=== PATIENT | female | born 1970 | race Caucasian/White ===

== ENCOUNTER 2016-11-24 11:58 | Emergency (ER) | payer BC ==
[~2016-11-24] VITALS: Ht 162.6 cm; Wt 110.0 kg
[2016-11-24 12:00] VITALS: BP 143/76; PULSE 76; RESP 16; TEMP 98.2; O2SAT 97
[2016-11-24] MEDS ORDERED: IBUP800T23 PO (13:20)
--- NOTE | 2016-11-24 13:21 | PD ---
HPI Chief Complaint: Fall Time Seen by Provider: 13:12 Travel History International Travel<30 days: No Contact w/Intl Traveler<30days: No Traveled to known affect area: No History of Present Illness HPI 46-year-old female presents to the emergency Department with complaint of left distal medial forearm pain after tripping in the dark early Monday morning and hitting the side of her arm on the wall. She did not fall completely. She denies hitting her head or loss of consciousness. Denies paresthesias, loss of sensation, decreased range motion, decreased strength to the affected extremity. Pain is aggravated with movement of the left middle finger. She has full range of motion at the wrist without pain. She has been wearing a wrist splint for support. She's been taking Aleve, ibuprofen, and Tylenol with minimal relief of pain. No known allergies. Denies significant past medical history. No other modifying factors or associated signs and symptoms. PFSH Past Medical History Medical History: Denies Significant Hx Social History Tobacco Use: No Allergies-Medications (Allergen,Severity, Reaction): Coded Allergies: No Known Allergies (Unverified , 11/24/16) Reported Meds & Prescriptions Reported Meds & Active Scripts Active Ibuprofen 800 Mg Tab 800 Mg PO Q6HR PRN Review of Systems Except as stated in HPI: all other systems reviewed are Neg Physical Exam Narrative GENERAL: Well-nourished, well-developed patient, in no acute distress SKIN: Warm and dry. HEAD: Atraumatic. Normocephalic. EYES: Pupils equal and round. No scleral icterus. No injection or drainage. ENT: Mucosa pink and moist. Airway patent. NECK: Trachea midline. CARDIOVASCULAR: Regular rate. RESPIRATORY: No accessory muscle use. GASTROINTESTINAL: Abdomen soft, non-tender, nondistended. MUSCULOSKELETAL: Left wrist is with full range of motion and without tenderness on palpation; without erythema or edema. Left medial distal forearm with tenderness on palpation and without erythema, edema, ecchymosis. No obvious deformities. Left upper extremity supple and non-tense with 2+ radial pulse and sensory intact and without erythema or edema. No obvious deformities. No clubbing. No cyanosis. NEUROLOGICAL: Awake and alert. Oriented 3. No obvious cranial nerve deficits. Motor grossly within normal limits. Normal speech. PSYCHIATRIC: Appropriate mood and affect; insight and judgment normal. Data Data Last Documented VS Vital Signs Date Time Temp Pulse Resp B/P Pulse Ox O2 Delivery O2 Flow Rate FiO2 11/24/16 12:00 98.2 76 16 143/76 97 Room Air Orders Forearm (2vws) (11/24/16 13:11) MDM Medical Decision Making Medical Screen Exam Complete: Yes Emergency Medical Condition: Yes Medical Record Reviewed: Yes Differential Diagnosis Forearm fracture, forearm contusion, fall Narrative Course 46-year-old female with left forearm injury after a mechanical fall. She did not fall completely denies hitting her head or loss of consciousness. Left approximate supplemented with 2+ radial pulses and sensory intact without erythema or edema. I offered the patient a nonnarcotic for pain and she declined at this time cycle and she said she took something just prior to arrival. Left forearm x-ray ordered. 1416: Left forearm x-ray with no acute findings. Patient has wrist splint for support. Ibuprofen prescribed for home. Patient is medically cleared and stable for discharge. Discussed reasons to return to the emergency department. Instructed patient to follow up with primary care provider. Patient agrees with treatment plan. The patients vital signs are stable and the patient is stable for outpatient follow-up and treatment. Patient discharged home, stable and in no acute distress. Diagnosis Primary Impression: Contusion of forearm, left Referrals: Primary Care Physician Patient Instructions: Contusion in Adults (ED), General Instructions Additional Instructions: Tylenol or ibuprofen as directed and as needed to reduce pain Rest, ice, compress, and elevate extremity to decrease pain and inflammation Wrist Splint for support as needed Avoid aggravating activity; increase activity as tolerated Follow-up with primary care provider Return to the emergency department immediately with worsening symptoms Med/Other Pt SpecificInfo: Prescription(s) given Scripts Ibuprofen 800 Mg [id number] Mg PO Q6HR PRN (PAIN) #30 TAB Ref 0 Prov:Mary Jo Zamorano 11/24/16 Disposition: 01 DISCHARGE HOME Condition: Stable Mary Jo Zamorano Nov 24, 2016 13:21
--- NOTE | 2016-11-24 14:11 | RADRPT ---
EXAM DATE/TIME: 11/24/2016 13:41 [facility] COMPARISON: No previous studies available for comparison. INDICATIONS : Left wrist pain after falling 4 days ago. MEDICAL HISTORY : None. SURGICAL HISTORY : None. ENCOUNTER: Initial ACUITY: 4 - 6 days PAIN SCORE: 4/10 LOCATION: Left wrist. FINDINGS: Two view examination of the left forearm demonstrates no evidence of fracture or dislocation. Bony m ineralization is normal. The soft tissue structures are intact. CONCLUSION: No acute osseous injury. Arun Maria MD on November 24, 2016 at 14:09 Board Certified Radiologist. This report was verified electronically.
== END 2016-11-24 14:29 | disposition home or self-care (01) ==
LOC: NEPB 11:58
DX: S50.12XA Contusion of left forearm, initial encounter (principal); W18.40XA Slipping, tripping and stumbling without falling, unspecified, initial encounter; Y92.009 Unspecified place in unspecified non-institutional (private) residence as the place of occurrence of the external cause
CPT/HCPCS: 73090; 99283

== ENCOUNTER 2016-12-28 10:27 | Emergency (ER) | payer BC ==
[~2016-12-28] VITALS: Ht 162.6 cm; Wt 91.0 kg
[~2016-12-28 10:27] MED LIST: IBUP800T23 PO
[2016-12-28 10:30] VITALS: BP 146/75; PULSE 98; RESP 16; TEMP 98; O2SAT 100
[2016-12-28 10:38] VITALS: BP 136/72; PULSE 93; RESP 20; TEMP 97.2; O2SAT 100
--- NOTE | 2016-12-28 10:46 | PD ---
HPI Chief Complaint: Pain: Acute or Chronic Time Seen by Provider: 10:45 Travel History International Travel<30 days: No Contact w/Intl Traveler<30days: No Traveled to known affect area: No History of Present Illness HPI 46-year-old female came to the emergency room with history of right lower quadrant abdominal pain for almost a week. Patient says it started 1 week ago when it was really sharp and then subsided. She has had a dull ache through the rest of the week. This morning the pain got really worse and was unbearable and she decided come to the emergency room. Her appetite has been low during these past few weeks. She has been nauseous but no vomiting. No history of dysuria or hematuria. No history of fever or chills. Vital signs were relatively stable. She has history of polycystic ovary disease. Patient says currently she is uncomfortable with the pain. [facility] Past Medical History Narrative Medical List of her past medical, surgical, social and family history was reviewed from the nursing note. Social History Tobacco Use: No Allergies-Medications (Allergen,Severity, Reaction): Coded Allergies: No Known Allergies (Unverified , 12/28/16) Comments No known drug allergies. Reported Meds & Prescriptions Reported Meds & Active Scripts Active Naprosyn (Naproxen) 500 Mg Tab 500 Mg PO BID Lequire (Hydrocodone-Acetaminophen) 5-325 mg Tab 1 Tab PO Q6H PRN Ibuprofen 800 Mg Tab 800 Mg PO Q6HR PRN Narrative Medication List of her home medications reviewed from the nursing note. Review of Systems Except as stated in HPI: all other systems reviewed are Neg Physical Exam Narrative GENERAL: Awake, alert, obese, mild distress SKIN: Warm and dry. HEAD: Atraumatic. Normocephalic. EYES: Pupils equal and round. No scleral icterus. No injection or drainage. ENT: No nasal bleeding or discharge. Mucous membranes pink and moist. NECK: Trachea midline. No JVD. CARDIOVASCULAR: Regular rate and rhythm. No murmur appreciated. RESPIRATORY: No accessory muscle use. Clear to auscultation. Breath sounds equal bilaterally. GASTROINTESTINAL: Abdomen soft, right lower quadrant tenderness, nondistended. Hepatic and splenic margins not palpable. MUSCULOSKELETAL: No obvious deformities. No clubbing. No cyanosis. No edema. NEUROLOGICAL: Awake and alert. No obvious cranial nerve deficits. Motor grossly within normal limits. Normal speech. PSYCHIATRIC: Appropriate mood and affect; insight and judgment normal. Data Data Last Documented VS Orders Complete Blood Count With Diff (12/28/16 10:56) Comprehensive Metabolic Panel (12/28/16 10:56) Lipase (12/28/16 10:56) Urinalysis - C+S If Indicated (12/28/16 10:56) Ct Abd/Pel W/O Iv Contrast (12/28/16 10:56) Iv Access Insert/Monitor (12/28/16 10:56) Ecg Monitoring (12/28/16 10:56) Oximetry (12/28/16 10:56) Morphine Inj (Morphine Inj) (12/28/16 11:00) Ondansetron Inj (Zofran Inj) (12/28/16 11:00) Sodium Chlor 0.9% 1000 Ml Inj (Ns 1000 M (12/28/16 10:56) Sodium Chloride 0.9% Flush (Ns Flush) (12/28/16 11:00) Ed Urine Pregnancytest Poc (12/28/16 10:56) Labs MDM Medical Decision Making Medical Screen Exam Complete: Yes Emergency Medical Condition: Yes Medical Record Reviewed: Yes Differential Diagnosis Acute appendicitis, diverticulitis, UTI, ureteral colic Narrative Course 11:46 AM UA was within normal limit. Patient is not . I waiting for CAT scan and blood test. Patient was given IV pain medication and fluid bolus. 12:48 PM all the test results came back to be within acceptable limits. CAT scan showed multiple stones in the gallbladder and right kidney has a 6 mm nonobstructing stone. However neither of those seem to be the origin of patient 's pain since her pain is in the right lower quadrant. However they did notice free fluid in the pelvis on the right side. I went back to reassess the patient and let her know about the test results. She mentioned that her pain was still there all the little better with the morphine. I let her know about the test results. I will discharge her home with pain medications and I have asked her to follow up with her primary care. Procedures EKG Prior to Arrival: No Diagnosis Primary Impression: Abdominal pain Qualified Code: R10.31 - Right lower quadrant abdominal pain Additional Impressions: Cholelithiasis Qualified Code: K80.20 - Calculus of gallbladder without cholecystitis without obstruction Nephrolithiasis Referrals: Aguila Barry MD 3 days Additional Instructions: Please return to the ER if the condition worsens or any other new concerns. Take the medications as per the prescription direction. Do not drive or operate heavy machinery while on pain medication since they'll make you groggy. Follow-up with the surgeon whose name and number been provided to. Med/Other Pt SpecificInfo: Prescription(s) given Scripts Naproxen (Naprosyn)500 Mg [id number] Mg PO BID #30 TAB Ref 0 Prov:Cecilia Bartlett MD 12/28/16 Hydrocodone-Acetaminophen (Lequire)5-325 mg Tab1 Tab PO Q6H PRN (PAIN) #20 TAB Ref 0 Prov:Cecilia Bartlett MD 12/28/16 Disposition: 01 DISCHARGE HOME Condition: Stable Cecilia Bartlett MD Dec 28, 2016 10:46 Microscopic Urinalysis Comment CULT NOT INDICATED White Blood Count 7.4 TH/MM3 Red Blood Count 4.28 MIL/MM3 Hemoglobin 13.0 GM/DL Hematocrit 38.3 % Mean Corpuscular Volume 89.5 FL Mean Corpuscular Hemoglobin 30.3 PG Mean Corpuscular Hemoglobin 33.8 % Concent Red Cell Distribution Width 14.1 % Platelet Count 252 TH/MM3 Mean Platelet Volume 8.9 FL Neutrophils (%) (Auto) 71.5 % Lymphocytes (%) (Auto) 20.4 % Monocytes (%) (Auto) 6.7 % Eosinophils (%) (Auto) 0.9 % Basophils (%) (Auto) 0.5 % Neutrophils # (Auto) 5.3 TH/MM3 Lymphocytes # (Auto) 1.5 TH/MM3 Monocytes # (Auto) 0.5 TH/MM3 Eosinophils # (Auto) 0.1 TH/MM3 Basophils # (Auto) 0.0 TH/MM3 CBC Comment DIFF FINAL Differential Comment Sodium Level 142 MEQ/L Potassium Level 4.2 MEQ/L Chloride Level 108 MEQ/L Carbon Dioxide Level 27.4 MEQ/L Anion Gap 7 MEQ/L Blood Urea Nitrogen 12 MG/DL Creatinine 0.79 MG/DL Estimat Glomerular Filtration 79 ML/MIN Rate Random Glucose 95 MG/DL Calcium Level 8.7 MG/DL Total Bilirubin 0.4 MG/DL Aspartate Amino Transf 42 U/L (AST/SGOT) Alanine Aminotransferase 23 U/L (ALT/SGPT) Alkaline Phosphatase 78 U/L Total Protein 7.1 GM/DL Albumin 3.6 GM/DL Lipase 140 U/L [facility] Medical Decision Making Medical Screen Exam Complete: Yes Emergency Medical Condition: Yes Medical Record Reviewed: Yes Differential Diagnosis Acute appendicitis, diverticulitis, UTI, ureteral colic Narrative Course 11:46 AM UA was within normal limit. Patient is not . I waiting for CAT scan and blood test. Patient was given IV pain medication and fluid bolus. 12:48 PM all the test results came back to be within acceptable limits. CAT scan showed multiple stones in the gallbladder and right kidney has a 6 mm nonobstructing stone. However neither of those seem to be the origin of patient 's pain since her pain is in the right lower quadrant. However they did notice free fluid in the pelvis on the right side. I went back to reassess the patient and let her know about the test results. She mentioned that her pain was still there all the little better with the morphine. I let her know about the test results. I will discharge her home with pain medications and I have asked her to follow up with her primary care. Procedures EKG Prior to Arrival: No Diagnosis Primary Impression: Abdominal pain Qualified Code: R10.31 - Right lower quadrant abdominal pain Additional Impressions: Cholelithiasis Qualified Code: K80.20 - Calculus of gallbladder without cholecystitis without obstruction Nephrolithiasis Referrals: Aguila Barry MD 3 days Additional Instructions: Please return to the ER if the condition worsens or any other new concerns. Take the medications as per the prescription direction. Do not drive or operate heavy machinery while on pain medication since they'll make you groggy. Follow-up with the surgeon whose name and number been provided to. Med/Other Pt SpecificInfo: Prescription(s) given Scripts Naproxen (Naprosyn)500 Mg [id number] Mg PO BID #30 TAB Ref 0 Prov:Cecilia Bartlett MD 12/28/16 Hydrocodone-Acetaminophen (Lequire)5-325 mg Tab1 Tab PO Q6H PRN (PAIN) #20 TAB Ref 0 Prov:Cecilia Bartlett MD 12/28/16 Disposition: 01 DISCHARGE HOME Condition: Stable Cecilia Bartlett MD Dec 28, 2016 10:46
[2016-12-28] MEDS ORDERED: SODIUM CHLOR 0.9% 1000 ML INJ 1,000 ML IV SCH (10:56)
[2016-12-28] MEDS ORDERED: SODIUM CHLORIDE 0.9% FLUSH 10 ML FLUSH IV FLUSH PRN (11:00)
[2016-12-28] MEDS ORDERED: ONDANSETRON HCL 4 MG/2 ML VIAL IVP ONE (11:00)
[2016-12-28] MEDS ORDERED: MORPHINE SULFATE 4 MG/ML INJ IV PUSH ONE (11:00)
[2016-12-28 11:25] LABS: BACTERIA, URINE OCC /hpf; BLOOD, URINE NEG (NEG); GLUCOSE,URINE NEG (NEG); HYALINE CAST, URINE 1 /lpf (RARE); KETONE, URINE NEG (NEG); NITRITE,URINE NEG (NEG); SQUAMOUS EPITHELIAL CELL URINE 1 /hpf (0-5); URINE COLOR COLORLESS (YELLW/STRAW)
[2016-12-28 11:28] LABS: COMMENT (UR) CULT NOT INDICATED; CULTURE IF INDICATED CULT NOT INDICATED
--- NOTE | 2016-12-28 11:57 | RADRPT ---
EXAM DATE/TIME: 12/28/2016 11:31 [facility] COMPARISON: No previous studies available for comparison. INDICATIONS : Upper right abdomen pain ORAL CONTRAST: No oral contrast ingested. RADIATION DOSE: 13.61 CTDIvol (mGy) MEDICAL HISTORY : Polycystic kidney SURGICAL HISTORY : None. ENCOUNTER: Initial ACUITY: 1 day PAIN SCALE: 5/10 LOCATION: Right abdomen TECHNIQUE: Volumetric scanning of the abdomen and pelvis was performed. Using automated exposure control and ad justment of the mA and/or kV according to patient size, radiation dose was kept as low as reasonably achievable to obtain optimal diagnostic quality images. FINDINGS: LOWER LUNGS: The visualized lower lungs are clear. LIVER: Homogeneous density without lesion. There is no dilation of the biliary tree. The gallbladder is nav led with partially calcified gallstones. SPLEEN: Normal size without lesion. PANCREAS: Within normal limits. KIDNEYS: Normal in size and shape. There is no hydronephrosis. There is a tiny 6 mm hyperdense focus within t he right kidney consistent with possible stone or hyperdense cyst. ADRENAL GLANDS: Within normal limits. VASCULAR: There is no aortic aneurysm. BOWEL/MESENTERY: The stomach, small bowel, and colon demonstrate no acute abnormality. There is no free intraperitone al air. There is a small collection ascites within the right lower quadrant/right pelvis. ABDOMINAL WALL: Within normal limits. RETROPERITONEUM: There is no lymphadenopathy. BLADDER: No wall thickening or mass. REPRODUCTIVE: Within normal limits. INGUINAL: There is no lymphadenopathy or hernia. MUSCULOSKELETAL: Within normal limits for patient age. CONCLUSION: 1. Gallbladder filled with partially calcified stones. 2. Small focal collection of ascites within the right lower quadrant/right hemipelvis. 3. 6 mm hyperdense focus within the right kidney consistent with nonobstructing stone or tiny hyperde nse cyst. Lei Meek MD on December 28, 2016 at 11:49 Board Certified Radiologist. This report was verified electronically.
[2016-12-28 12:10] LABS: AUTOMATED NEUTROPHIL # 5.3 TH/MM3 (1.8-7.7); BASOPHIL % 0.5 % (0.0-2.0); EOSINOPHIL # 0.1 TH/MM3 (0-0.4); EOSINOPHIL % 0.9 % (0.0-4.0); HEMATOCRIT 38.3 % (35.0-46.0); HEMO FLAGS DIFF FINAL; LYMPH % 20.4 % (9.0-44.0); LYMPHOCYTE # 1.5 TH/MM3 (1.0-4.8); MEAN CELL VOLUME 89.5 FL (80.0-100.0); MEAN CORPUSCULAR HEMOGLOBIN 30.3 PG (27.0-34.0); MEAN CORPUSCULAR HGB CONC 33.8 % (32.0-36.0); MONO % 6.7 % (0.0-8.0); NEUT % 71.5 % (16.0-70.0); PLATELET COUNT 252 TH/MM3 (150-450); RED BLOOD COUNT 4.28 MIL/MM3 (4.00-5.30); RED CELL DISTRIBUTION WIDTH 14.1 % (11.6-17.2); WHITE BLOOD COUNT 7.4 TH/MM3 (4.0-11.0)
[2016-12-28 12:11] VITALS: O2SAT 95
[2016-12-28 12:33] LABS: ALKALINE PHOSPHATASE 78 U/L (45-117); TOTAL BILIRUBIN ADULT 0.4 MG/DL (0.2-1.0)
[2016-12-28 12:34] LABS: ALT (GPT) 23 U/L (10-53); ANION GAP 7 MEQ/L (5-15); AST (GOT) 42 U/L (15-37); BICARBONATE 27.4 MEQ/L (21.0-32.0); BLOOD UREA NITROGEN 12 MG/DL (7-18); CHLORIDE 108 MEQ/L (98-107); GLOMERULAR FILTRATION RATE 79 ML/MIN (>89); SODIUM (NA) 142 MEQ/L (136-145)
[2016-12-28 12:35] LABS: POTASSIUM 4.2 MEQ/L (3.5-5.1)
[2016-12-28] MEDS ORDERED: NORC5TAB PO (12:52)
[2016-12-28] MEDS ORDERED: NAPR500 PO (12:52)
== END 2016-12-28 13:24 | disposition home or self-care (01) ==
LOC: NEPE 10:27
DX: R10.31 Right lower quadrant pain (principal); K80.20 Calculus of gallbladder without cholecystitis without obstruction; N20.0 Calculus of kidney; R11.0 Nausea; Z87.42 Personal history of other diseases of the female genital tract
CPT/HCPCS: 74176; 80053; 81001; 83690; 84703; 85025; 96361; 96374; 96375; 99284; J2270; J2405; J7030